=== PATIENT | male | born 1940 | race Caucasian/White ===

== ENCOUNTER 2016-11-11 07:58 | Emergency (ER) | payer MEDICARE, MEDICAID ==
[~2016-11-11] VITALS: Ht 162.6 cm; Wt 54.5 kg
[~2016-11-11 07:58] MED LIST: ASPI-1061 PO; ATOR10TA84 PO; OMEP10 PO; ZOLP5 PO; [UNRECOGNIZED DRUG - CODE]; [UNRECOGNIZED DRUG - OTHER]
[2016-11-11 07:59] VITALS: BP 130/80
== END 2016-11-11 10:18 | disposition left against medical advice (07) ==
LOC: EMS 07:59
DX: R04.0 Epistaxis (principal); K21.9 Gastro-esophageal reflux disease without esophagitis; E78.00 Pure hypercholesterolemia, unspecified; I10 Essential (primary) hypertension
CPT/HCPCS: 99281